=== PATIENT | female | born 1955 | race Caucasian/White ===

== ENCOUNTER 2018-11-03 09:46 | Outpatient (CLI) | payer BC, SELFPAY ==
[2018-11-03 12:25] LABS: ALT 58 U/L (12-78); AST 25 U/L (15-37); Albumin 3.9 g/dL (3.4-5.0); Alkaline Phosphatase 107 U/L (46-116); Anion Gap 11.9 mmol/L (3-11); BUN 12 mg/dL (7-18); Bilirubin, Total 0.4 mg/dL (0.2-1.0); CO2 28.1 mmol/L (21.0-32.0); CREATININE 0.61 mg/dL (0.55-1.02); Calcium 8.8 mg/dL (8.5-10.1); Chloride 99 mmol/L (98-107); Cholesterol 200 mg/dL (50-200); Glucose 137 mg/dL (70-100); HDL Cholesterol 39 mg/dL (40-60); LDL CHOLESTEROL 93 mg/dL (<100); Potassium 3.8 mmol/L (3.5-5.1); Sodium 139 mmol/L (136-145); Total Protein 7.1 g/dL (6.4-8.2); Triglyceride 419 mg/dL (30-150)
[2018-11-04 09:04] LABS: COMMENT (LAB VIEW ONLY) 114.73 mg/dL; Microalb ug/mg Crea 58.1 ug/mg Cr
== END 2018-11-03 10:06 ==
PROVIDERS: PCP Family Medicine; Visit Provider Family Medicine
DX: E11.9 Type 2 diabetes mellitus without complications (principal); Z00.00 Encounter for general adult medical examination without abnormal findings
CPT/HCPCS: 36415; 80053; 80061; 83721; 82043; 82570; 83036

== ENCOUNTER 2018-12-21 01:08 | Outpatient (CLI) | payer BC, SELFPAY ==
--- NOTE | 2018-12-21 13:14 | DI.MAMMO_ITS ---
SYMPTOMS/DIAGNOSIS: SCREENING, Z12.31 BILATERAL SCREENING MAMMOGRAM: Mammograms were interpreted according to the usual protocol including computer analysis with CAD system, tomosynthesis and C view imaging. The breasts are composed of heterogeneously dense fibroglandular tissue, breast density category C. No suspicious masses or suspicious microcalcifications are seen. There has been no significant change. IMPRESSION: Category 1, negative mammogram. Yearly screening mammography is recommended. [facility] ASSESSMENT OF FINDINGS: Negative. Category 1. Patient will receive a letter notifying them of these results. Bi-RADS category C. The breasts are heterogeneously dense, which may obscure small masses.
== END 2018-12-21 01:28 ==
PROVIDERS: PCP Family Medicine; Visit Provider Family Medicine
DX: Z12.31 Encounter for screening mammogram for malignant neoplasm of breast (principal)
CPT/HCPCS: 77063; 77067

== ENCOUNTER 2019-12-23 00:44 | Outpatient (CLI) | payer BC, SELFPAY ==
--- NOTE | 2019-12-23 15:22 | DI.MAMMO_ITS ---
EXAM: MG MAMMO SCREENING CLINICAL HISTORY: screening, Z12.39 TECHNIQUE: Bilateral full field digital CC and MLO mammographic images were obtained with 3D tomosyn thesis and utilizing computer aided detection (CAD). COMPARISON: Available for comparison. FINDINGS: Masses/Architectural Distortion: None seen. Microcalcifications: No suspicious pleomorphic-type are seen. Skin Thickening/Nipple Retraction: None. IMPRESSION: 1. No significant interval change with no specific features of malignancy noted. 2. Unless there is more urgent need, screening mammography is recommended, as per [place] [employer] guidelines. BI-RADS Category 1 - Negative Breast Density - Category C - Heterogeneously dense The mammogram demonstrates the patient's breast tissue is dense. Dense breast tissue is very common a nd is not abnormal but dense breast tissue can make it harder to find cancer on a mammogram. Also, de nse breast tissue may increase their breast cancer risk. This information about the result of the [facility] mogram report was provided to the patient to raise their awareness. Use this report when you speak wi th the patient about their risks for breast cancer, which includes their family history. At that time , you may recommend for more screening tests (Ultrasound or MRI) as they might be useful based on the ir risk. A negative radiographic report should not delay biopsy if a dominant or clinically suspicious mass is present. Up to ten percent of cancers are not identified on mammography. A negative report may reinforce clinical impression. Adenosis and dense breasts may obscure an underlying neoplasm. False positive reports average 6 to 10%. Patient will receive a letter notifying them of these results.
== END 2019-12-23 01:04 ==
PROVIDERS: PCP Family Medicine; Visit Provider Nurse Practitioner
DX: Z12.31 Encounter for screening mammogram for malignant neoplasm of breast (principal)
CPT/HCPCS: 77063; 77067

== ENCOUNTER 2020-10-19 03:05 | Outpatient (CLI) | payer BC, SELFPAY ==
[2020-10-20 18:09] LABS: COVID-19 RT-PCR UVMMC Result Negative (Negative)
== END 2020-10-19 03:06 | disposition home or self-care (01) ==
LOC: LBO 03:05
PROVIDERS: PCP Family Medicine; Visit Provider Family Medicine
DX: Z20.822 Contact with and (suspected) exposure to COVID-19 (principal)
CPT/HCPCS: U0003

== ENCOUNTER 2021-05-21 02:58 | Outpatient (CLI) | payer MEDICARE, OTHER, SELFPAY ==
[2021-05-21 07:28] LABS: HCT 43.7 % (36.0-46.0); HGB 14.5 g/dL (11.2-15.7); MCHC 33.2 % (32.0-36.0); MCV 90.3 fL (80-95); MPV 10.1 fL (8.0-11.0); Platelet Count 209 10^3/uL (130-400); RBC 4.84 10^6/uL (3.93-5.22); RDW 12.1 % (11.7-14.6); RDW-SD 39.8 fL; WBC 6.35 10^3/uL (4.4-10.8)
[2021-05-21 07:45] LABS: Hemoglobin A1C 8.1 % (<5.7)
[2021-05-21 09:23] LABS: ALT 56 U/L (14-59); AST 25 U/L (15-37); Alkaline Phosphatase 100 U/L (46-116); Anion Gap 12.6 mmol/L (3-11); BUN 18 mg/dL (7-18); Bilirubin, Total 0.5 mg/dL (0.2-1.0); CO2 28.4 mmol/L (21.0-32.0); CREATININE 0.6 mg/dL (0.55-1.02); Calcium 9.5 mg/dL (8.5-10.1); Calculated LDL 79 mg/dL (<100); Chloride 101 mmol/L (98-107); Cholesterol 193 mg/dL (<200); Glucose 180 mg/dL (74-106); HDL Cholesterol 45 mg/dL (40-60); Potassium 3.9 mmol/L (3.5-5.1); Sodium 142 mmol/L (136-145); Total Protein 7.2 g/dL (6.4-8.2); Triglyceride 345 mg/dL (<150)
[2021-05-21 17:24] LABS: COMMENT (LAB VIEW ONLY) 86.96 mg/dL; Microalb ug/mg Crea 57.7 ug/mg Cr
== END 2021-05-21 02:59 | disposition home or self-care (01) ==
LOC: LBO 02:58
PROVIDERS: PCP Family Medicine; Visit Provider Family Medicine
DX: I10 Essential (primary) hypertension (principal); E11.9 Type 2 diabetes mellitus without complications; K62.5 Hemorrhage of anus and rectum
CPT/HCPCS: 36415; 80053; 80061; 85027; 82043; 82570; 83036

== ENCOUNTER → 2021-06-01 14:32 | Outpatient (BNVA) | payer MEDICARE, OTHER, SELFPAY | PROVIDERS: PCP Family Medicine; Referring Provider Family Medicine; Visit Provider Surgery | DX: K64.8 Other hemorrhoids (principal) | CPT/HCPCS: 99203 ==

== ENCOUNTER 2021-06-08 00:08 | Outpatient (CLI) | payer MEDICARE, OTHER, SELFPAY ==
--- NOTE | 2021-06-08 15:31 | DI.MAMMO_ITS ---
Exam(s) MAMMO SCREENING EXAM: MAMMO SCREENING CLINICAL HISTORY: screening.Z12.39 TECHNIQUE: Bilateral full field digital CC and MLO mammographic images were obtained with 3D tomosyn thesis and utilizing computer aided detection (CAD). COMPARISON: Available for comparison. FINDINGS: Masses/Architectural Distortion: None seen. Microcalcifications: No suspicious pleomorphic-type are seen. Skin Thickening/Nipple Retraction: None. IMPRESSION: 1. No significant interval change with no specific features of malignancy noted. 2. Unless there is more urgent need, screening mammography is recommended, as per [place] [employer] guidelines. BI-RADS Category 1 - Negative Breast Density - Category C - Heterogeneously dense Breast density category C or D implies that the patient has dense breast tissue. Dense breast tissue is very common and is not abnormal but dense breast tissue can make it harder to find cancer on a ma mmogram. Also, dense breast tissue may increase their breast cancer risk. This information about the result of the mammogram report was provided to the patient to raise their awareness. Use this report when you speak with the patient about their risks for breast cancer, which includes their family hist ory. At that time, you may recommend for more screening tests (Ultrasound or MRI) as they might be us eful based on their risk. A negative radiographic report should not delay biopsy if a dominant or clinically suspicious mass is present. Up to ten percent of cancers are not identified on mammography. A negative report may reinforce clinical impression. Adenosis and dense breasts may obscure an underlying neoplasm. False positive reports average 6 to 10%. Patient will receive a letter notifying them of these results.
== END 2021-06-08 00:28 ==
PROVIDERS: PCP Family Medicine; Visit Provider Family Medicine
DX: Z12.31 Encounter for screening mammogram for malignant neoplasm of breast (principal); R92.8 Other abnormal and inconclusive findings on diagnostic imaging of breast
CPT/HCPCS: 77063; 77067

== ENCOUNTER → 2021-11-23 10:31 | Outpatient (BNVA) | payer MEDICARE, SELFPAY | PROVIDERS: PCP Family Medicine; Referring Provider Family Medicine; Visit Provider Surgery | DX: K64.9 Unspecified hemorrhoids (principal) | CPT/HCPCS: 99212 ==

== ENCOUNTER → 2021-12-07 09:53 | Outpatient (BNVA) | payer MEDICARE, SELFPAY | PROVIDERS: PCP Family Medicine; Referring Provider Family Medicine; Visit Provider Surgery | DX: K64.9 Unspecified hemorrhoids (principal); K62.1 Rectal polyp | CPT/HCPCS: 46221; 99213 ==

== ENCOUNTER 2021-12-07 10:34 | Outpatient (REF) | payer MEDICARE, SELFPAY ==
--- NOTE | 2021-12-07 10:30 | BOWEL_PTH ---
PATIENT: Laisha Knight LOC: [facility] U#:[id number] AGE/SX: 66/F ROOM: RE12/07/[address]: Lauren Avilez MD : [id number] BED: DIS: 12/07/2021 SPEC #: [id number] RECD: 12/07/21 12:35 STATUS: SNAJEEV REQ #: [id number] DENISSE: 12/07/21 10:[address]: Lauren Avilez DEPT: Surgical Specimen RECD BY: Tamiko Beth ENTERED: 12/07/21 12:35 SP TYPE: Bowel OTHR DR: Larry Lawton Tissues: 1 - BIOPSY BOWEL Procedures: GROSS AND MICRO LEVEL 4 Comments: [id number]
== END 2021-12-07 10:35 | disposition home or self-care (01) ==
LOC: LBN 10:34
PROVIDERS: PCP Family Medicine; Visit Provider Surgery
DX: K62.1 Rectal polyp (principal)
CPT/HCPCS: 88305

== ENCOUNTER → 2022-02-28 16:11 | Outpatient (CLI) | payer MEDICARE, SELFPAY ==
--- NOTE | 2022-02-28 14:30 | DI.RAD_ITS ---
Exam(s) XR ANKLE LT COMPLETE EXAM: XR ANKLE LT COMPLETE CLINICAL HISTORY: PAIN IN LT ANKLE JOINTS OF LT FOOT--M25.572 TECHNIQUE: 2D digital imaging was performed of the left ankle. Three images were obtained. AP, lat eral and oblique views were obtained. COMPARISON: No exams were available for comparison FINDINGS: BONES: No acute fracture is present. No bony destructive lesion is seen. There is a small plantar sukhwinder caneal spur. There is a small enthesophyte at the Achilles insertion site. There is a sideplate and screws transfixing the old healed left fibular fracture. There is a small subchondral cyst in the t ibial plafond. JOINTS:The ankle mortise is normally aligned. SOFT TISSUE: Soft tissue swelling about the ankle is noted. IMPRESSION: No acute abnormality. DATA REPOSITORY: RADIATION DOSE DELIVERED:
== END ==
PROVIDERS: PCP Nurse Practitioner Family; Visit Provider Physician Assistant
DX: M25.572 Pain in left ankle and joints of left foot (principal)
CPT/HCPCS: 73610

== ENCOUNTER 2022-07-29 01:05 | Outpatient (CLI) | payer MEDICARE, SELFPAY ==
[2022-07-29 12:21] LABS: HCT 42.9 % (36.0-46.0); HGB 14.2 g/dL (11.2-15.7); MCHC 33.1 % (32.0-36.0); MCV 91 fL (80-95); MPV 10.6 fL (8.0-11.0); Platelet Count 224 10^3/uL (130-400); RBC 4.74 10^6/uL (3.93-5.22); RDW 12.5 % (11.7-14.6); RDW-SD 41.3 fL; WBC 6.32 10^3/uL (4.4-10.8)
[2022-07-29 12:38] LABS: ALT 37 U/L (14-59); AST 20 U/L (15-37); Alkaline Phosphatase 105 U/L (46-116); Anion Gap 6.8 mmol/L (3-11); BUN 15 mg/dL (7-18); Bilirubin, Total 0.3 mg/dL (0.2-1.0); CO2 31.2 mmol/L (21.0-32.0); CREATININE 0.6 mg/dL (0.55-1.02); Calcium 9.8 mg/dL (8.5-10.1); Calculated LDL 81 mg/dL (<100); Chloride 101 mmol/L (98-107); Cholesterol 188 mg/dL (<200); Estimated GFR 98.93 (mL/min/1.73m2); Glucose 187 mg/dL (74-106); HDL Cholesterol 51 mg/dL (40-60); Sodium 139 mmol/L (136-145); TSH (W/Ref FT4) 1.47 uIU/mL (0.36-3.74); Total Protein 7.4 g/dL (6.4-8.2); Triglyceride 284 mg/dL (<150)
== END 2022-07-29 01:06 | disposition home or self-care (01) ==
LOC: LOS 01:05
PROVIDERS: PCP Nurse Practitioner Family; Visit Provider Nurse Practitioner Family
DX: E11.40 Type 2 diabetes mellitus with diabetic neuropathy, unspecified (principal); K62.5 Hemorrhage of anus and rectum; K64.8 Other hemorrhoids; I10 Essential (primary) hypertension; E78.5 Hyperlipidemia, unspecified
CPT/HCPCS: 36415; 80053; 80061; 85027; 84443

== ENCOUNTER 2022-09-02 00:57 | Outpatient (CLI) | payer MEDICARE, SELFPAY ==
--- NOTE | 2022-09-02 07:45 | DI.DEXA_ITS ---
Exam(s) XR DEXA BONE DENSITY W/WO TOMAS EXAM: XR DEXA BONE DENSITY W/WO TOMAS CLINICAL HISTORY: screening for osteoporosis in postmenopausal woman,Z78.0 TECHNIQUE: Routine DEXA evaluation of the lumbar spine, hip, or forearm. COMPARISON: No exams were available for comparison FINDINGS: Performed on a Hologic unit. Lateral image: No compression fracture evident. Lumbar Spine total T-score: -0.2 Hip total T-score:0.8 Independent reading at the level of the femoral neck yields T-score of -0.8 Forearm total T-score: -1.3 IMPRESSION: Bone mineral density measures in the normal range for lumbar spine and hip. Measures in osteopenia r gerosn for the forearm bones. Fracture risk low-moderate. Note: Any spine fracture indicates 5x risk for subsequent spine fracture and 2x risk for subsequent h ip fracture. World Health Organization criteria for BMD interpretation classify patients: Normal...... T- Score at or above -1.0 Osteopenic... T- Score between -1.0 and -2.5 Osteoporosis... T-Score at or below -2.5
--- NOTE | 2022-09-02 07:45 | DI.MAMMO_ITS ---
Exam(s) MAMMO SCREENING EXAM: MAMMO SCREENING CLINICAL HISTORY: screening,z12.39. TECHNIQUE: Bilateral full field digital CC and MLO mammographic images were obtained with 3D tomosyn thesis and utilizing computer aided detection (CAD). COMPARISON: Prior mammograms were reviewed. FINDINGS: There has been no significant change in the appearance and distribution of the fibroglandular tissue. There are no new spiculated masses nor malignant appearing microcalcification groups. There is no significant architectural distortion nor skin thickening-retraction. IMPRESSION: No radiographic evidence of malignancy. BI-RADS Category 1 - Negative Breast Density - Category C - Heterogeneously dense Breast density Category C or D implies that the patient has dense breast tissue. Dense breast tissue can make it harder to find cancer on a mammogram. Dense breast tissue is also associated with an incr eased risk of breast cancer. This information about the result of the mammogram report was provided to the patient to raise their awareness. Use this report when you speak with the patient about their risks for breast cancer, which includes their family history. At that time, you may recommend additional screening tests (Ultrasoun d or MRI) as these tests may add significant information. A negative radiographic report should not delay biopsy if a dominant or clinically suspicious mass is present. Up to ten percent of cancers are not identified on mammography. A negative report may reinforce clinical impression. Adenosis and dense breasts may obscure an underlying neoplasm. False positive reports average 6 to 10%. Patient will receive a letter notifying them of these results.
== END 2022-09-02 01:17 ==
LOC: DI 00:58
PROVIDERS: PCP Nurse Practitioner Family; Visit Provider Nurse Practitioner Family
DX: Z12.31 Encounter for screening mammogram for malignant neoplasm of breast (principal); Z78.0 Asymptomatic menopausal state; M85.88 Other specified disorders of bone density and structure, other site
CPT/HCPCS: 77063; 77067; 77080

== ENCOUNTER → 2022-09-27 14:18 | Outpatient (BNVA) | payer MEDICARE, SELFPAY | PROVIDERS: PCP Nurse Practitioner Family; Referring Provider Nurse Practitioner Family; Visit Provider Surgery | DX: K64.8 Other hemorrhoids (principal); I10 Essential (primary) hypertension; E11.9 Type 2 diabetes mellitus without complications | CPT/HCPCS: 99212; 99214 ==

== ENCOUNTER 2022-10-05 08:00 | Day surgery (SDC) | payer MEDICARE, SELFPAY ==
--- NOTE | 2022-10-05 06:37 | ROE_ITS ---
Date of service: 10/05/22 Time of Service: 10:25 Operative Note Operative Note DATE OF PROCEDURE: 10/05/22 PRE-OP DIAGNOSIS: Anal polyp POST-OP DIAGNOSIS: same PROCEDURE: Exam under anesthesia and polyp removal SURGEON: Lauren Avilez ANESTHESIA TYPE: Local By Surgeon, MAC and Spinal Refer to Anesthesia Record PATHOLOGY: other (anal polyp) COMPLICATIONS: None Patient was transported to: same day Patient's condition: stable Implants: None Indications: Laisha is a pleasant 67-year-old female with a prolapse type polyp in the rectum.? I did remove 1 in December of last year.? I am not sure whether this is a different polyp or if this regrowth of the polyp I tried to remove in the office last time.? I think this time I recommend doing exam under anesthesia in the operating room with complete excision and closure of the mucosa.? Risks benefits and complications were reviewed with her.? Complications include but are not limited to bleeding, infection, injury to the sphincter muscle with resulting incontinence and regrowth of this polyp.? I will again send the specimen to pathology.? Her questions were entertained and answered to her satisfaction.? She seemed to understand the risks and complications and wished to proceed. Procedure Description: After informed consent was obtained the patient was taken to the Operating room and placed in a prone position. She was placed under MAC sedation. Her buttocks were using tape on either side. Next a time out was done and the patients name, , allergies to medications, antibiotic given, procedure to be done were reviewed. Fire risk was assessed. Next the buttocks and triny-anal area were prepped with iodine and draped in a standard fashion. Next exparel mixed 50/50 with bupivocaine was injected circumferentially around the rectum. A rectal retractor was then placed into the rectum. The anal polyp was identified. It was ulcerated and very friable. It was gently grasped with an mario clamp. The base was ligated with a hand held ligasure. The edges were approximated with 3-0 Vicryl running suture. The excised polyp was placed in formalin and sent to pathology. There was one external hemorrhoid which was not bleeding and therefore was left alone. No other internal hemorrhoids were identified. The retractor was removed. a roled up 4x4 covered with surgicel was placed into the rectum. The skin was cleaned and dried. An ABD was placed and secured with mesh panties. The patient was then placed on a gurney in a supine position and taken back to [facility]. The patient tolerated the procedure well and there were no complications.
--- NOTE | 2022-10-05 06:38 | W.PM.DSUDISC ---
Date of service: 10/05/22 Time of Service: 10:12 Discharge Plan Disposition Patient Disposition: Home Condition: Stable Discharge Details Reason For Visit: internal hemorrhoids and anal polyp Attending Provider: Lauren Avilez Primary Care Provider: [place] Home Meds and New Rx's Prescriptions: New lidocaine [Anecream] 4 % cream 1 applic topical QID PRNQty: 30 0RF Rx Instructions: Wait to start until tomorrow Continued lisinopril 20 mg tablet 20 mg PO DAILY Qty: 90 3RF metformin 500 mg tablet extended release 24 hr 500 mg PO BID Qty: 180 3RF psyllium husk [Daily Fiber] 0.4 gram capsule 0.8 g PO DAILY amitriptyline 50 mg tablet 25 - 50 mg PO HS Qty: 90 3RF minocycline 50 mg capsule 50 mg PO BID Qty: 180 3RF metronidazole 0.75 % cream 1 applic TP DAILY Qty: 45 2RF (DME) blood-glucose meter [OneTouch Ultra2 Meter] [facility] [place] See Rx Instructions .Route Qty: 1 3RF Rx Instructions: Check blood sugar once a day (DME) OneTouch Ultra Test Strip See Rx Instructions .ROUTE .MEDSUPPLY Qty: 100 3RF Rx Instructions: Check blood sugar once a day (DME) lancets [OneTouch UltraSoft Lancets] [facility] [place] [facility] [place] See Rx Instructions .ROUTE .MEDSUPPLY Qty: 100 3RF Rx Instructions: Check blood sugar once a day omeprazole 20 mg capsule,delayed release(DR/EC) 20 mg PO DAILY Qty: 90 0RF cyclobenzaprine 5 mg tablet 5 mg PO TID PRN (Reason: muscle spasm) Qty: 60 0RF Rx Instructions: Take 1 tablet by mouth three times a day as needed for back pain calcium carbonate 500 MG tablet 1 tab PO DAILY multivitamin 1 EACH capsule 1 cap PO DAILY Fish Oil 1 EACH capsule 1 cap PO DAILY sumatriptan succinate 50 mg tablet See Rx Instructions PO .COMPLEX Qty: 20 4RF Dose Instruction: take 1 tab at onset of headache; if no relief may repeat 1 tab in 2hr; max = 4 tabs/day (24hr) PO Rx Instructions: take 1 tab at onset of headache; if no relief may repeat 1 tab in 2hr; max = 4 tabs/day (24hr) PO amlodipine 5 mg tablet 5 mg PO DAILY Qty: 90 3RF spironolactone 25 mg tablet 25 mg PO DAILY Qty: 90 3RF pravastatin 20 mg tablet 20 mg PO DAILY Qty: 90 3RF Held hydrocortisone 2.5 % cream with perineal applicator 1 applic OR TID Qty: 30 2RF Hold Instructions: Resume on 10/19/22. Allow the incision to heal for 2 weeks before using the hydrocodon again Rx Instructions: use for 2 weeks and stop Discharge Instructions Additional Instructions: Activity at Home after surgery: 1. As tolerated Diet, Nutrition, & wound healin. Avoid alcohol until after you are recovered from your surgery 2. Make sure to eat plenty of lean protein (meat, fish, eggs, cottage cheese, beans) 3. Eat a variety of fruits and vegetables. Eat plenty of high fiber foods to avoid constipation. 4. Drink plenty of liquids to stay hydrated and avoid constipation Pain Medications: 1. Tylenol 650mg every 6 hours as needed and Ibuprofen 600 mg every 6 hours as needed. You may alternate between the 2 medications every 3 hours 2. If a narcotic has been prescribed take as directed only for breakthrough pain For Constipation: 1. Take Milk of Magnesia or MiraLax as needed for constipation Other: 1. You may shower daily. 2. Sit in a bath with warm water 3 times a day 3. DO NOT use hydrocortizone cream for at least 2 weeks 4. Lidocaine oitment can be used up to 4 x a day for discomfort Please call our office if you develop: 1. Fevers >101.5 2. Nausea or Vomiting 3. Worsening pain 4. Redness and thick discharge from the wounds 5. Bleeding more then 2 tbs from the rectum If after hours please call the Hospital at and ask to speak to the on-call surgeon Stand Alone Forms: Anesthesia Discharge Inst., [place] (DSU) Referrals: Lauren Avilez MD [ [facility] STAFF PHYSICIAN] - 11/01/22 11:30 am Activity:: as above Shower/Bathe:: 24 hours Diet:: As Tolerated Discharge Orders Discharge Orders: Discharge Order (Routine); Ordered 10/05/22 Ordered By: Lauren Avilez DS: Diagnosis Discharge Diagnosis (1) Internal hemorrhoids: Status: Chronic
[2022-10-05 08:00] VITALS: BP 155/103; PULSE 100; RESP 18; TEMP 36.6; O2SAT 98
[2022-10-05] MEDS: Lactated Ringers 1,000 ML 80 ML IV (08:35)
--- NOTE | 2022-10-05 08:56 | W.PM.PROGNOT ---
Date of Service Date of service: 10/05/22 Time of Service: 08:56 Assessment and Plan Assessment and plan (1) Rectal polyp: Status: Acute Assessment and plan: Risks benefits and complications were again reviewed with Patricia. Complications include but are not limited to injury to this finger muscle which could result in incontinence, bleeding, pain, injury to the mucosa resulting in fistula and requiring further surgery. I will again send any tissue to pathology. When I removed the rectal polyp last time it was benign. I will just make sure that it has not changed. We discussed postoperative care with sitz bath and lidocaine ointment to help with pain. She did not have any other questions and wished to proceed with exam under anesthesia and internal hemorrhoid banding and excision of polyp. (2) Internal hemorrhoids: Status: Chronic Subjective Subjective Interval history since last seen: Laisha was seen in same-day surgery today prior to her surgery. She is doing well. She is still having some intermittent bleeding. No other changes to her health since I saw her in the office. We again reviewed the procedure of exam under anesthesia with excision of internal hemorrhoids and polyp. She may have some sutures in there. We discussed postoperative care with sitz bath's and some lidocaine ointment. We again reviewed the risks and benefits. Complications include but are not limited to sphincter injury which could lead to incontinence, injury to the anal mucosa resulting in fistula, postop bleeding. Exam Const General: cooperative, comfortable and no acute distress Orientation: alert and oriented x3 HENMT Head: normocephalic and atraumatic Resp Effort & Inspection: normal respiratory effort Auscultation: clear to auscultation bilaterally Cardio Rate: regular rate Rhythm: regular rhythm Objective Last Vital Signs Temp 97.9 F 10/05/22 08:00 Pulse 100 H 10/05/22 08:00 Resp 18 10/05/22 08:00 BP 155/103 H 10/05/22 08:00 Pulse Ox 98 10/05/22 08:00 Time Spent with Patient Time Spent with Patient: <25 minutes Time was spent: preparing to see the patient(eg.review tests) and counseling the patient
--- NOTE | 2022-10-05 09:14 | W.ANESPRE ---
General Info Date of Service Date Performed: 10/05/22 Height: 5 ft 3 in Weight: 107.2 kg Body Mass Index (BMI): 41.8 Surgical Procedure: Operation Date: 10/05/22 09:25 Proposed Procedure Side Surgeon p Exam Under Anesthesia w/ Excision of Polyp and Hemorrhoidectomy Lauren Avilez MD Meds Allergies and Home Medications Allergies Allergy/AdvReac Type Severity Reaction Status Date / Time No Known Drug Allergies Allergy Unverified 10/05/22 08:19 Home Medication Medication Instructions Recorded calcium carbonate 500 mg calcium 1 tab PO DAILY 09/25/12 (1,250 mg) tablet multivitamin 1 cap PO DAILY 09/25/12 omega-3 fatty acids-fish oil 340 1 cap PO DAILY 09/25/12 mg-1,000 mg capsule (Fish Oil) sumatriptan succinate 50 mg tablet See Rx Instructions PO .COMPLEX 01/31/22 #20 tabs amlodipine 5 mg tablet 5 mg PO DAILY #90 tabs 06/13/22 spironolactone 25 mg tablet 25 mg PO DAILY #90 tabs 06/13/22 amitriptyline 50 mg tablet 25 - 50 mg PO HS insomnia #90 tabs 07/22/22 blood sugar diagnostic (OneTouch #100 ea 07/22/22 Ultra Test strips) blood-glucose meter (OneTouch #1 ea 07/22/22 Ultra2 Meter) lancets (OneTouch UltraSoft #100 ea 07/22/22 Lancets) metronidazole 0.75 % topical cream 1 applic topical DAILY #45 grams 07/22/22 minocycline 50 mg capsule 50 mg PO BID #180 tab-caps 07/22/22 omeprazole 20 mg capsule,delayed 20 mg PO DAILY #90 caps 07/22/22 release cyclobenzaprine 5 mg tablet 5 mg PO TID PRN muscle spasm #60 07/29/22 tabs hydrocortisone 2.5 % topical cream 1 applic FL TID hemorrhoids #30 08/08/22 with perineal applicator grams lisinopril 20 mg tablet 20 mg PO DAILY #90 tab-caps 08/08/22 metformin 500 mg tablet,extended 500 mg PO BID #180 tabs 08/08/22 release 24 hr pravastatin 20 mg tablet 20 mg PO DAILY #90 tabs 08/10/22 psyllium husk 0.4 gram capsule 0.8 g PO DAILY 09/27/22 (Daily Fiber) Current Visit Medications: Current Medications Generic Name Dose Route Start Last Admin Trade Name Freq PRN Reason Stop Dose Admin Ringer's Solution 1,000 mls @ 80 mls/hr 10/05/22 06:00 10/05/22 08:35 IV 11/03/22 23:59 80 mls/hr INFUSION JUAN Administration Metronidazole 500 mg in 100 mls @ 100 mls/hr 10/05/22 06:00 Flagyl IVPB 10/05/22 18:00 PREOP JUAN Ondansetron HCl 4 mg/ Sodium 52 mls @ 200 mls/hr 10/05/22 06:41 Chloride IVPB Q6H PRN PRN IV Miscellaneous Supplies 1 each 10/05/22 06:00 Iv Access IV 11/03/22 23:59 DIRECTED JUAN Oxycodone HCl 5 mg 10/05/22 06:41 Oxycodone 5 Mg Tab PO Q3H PRN PRN Pain Sodium Chloride 0 ml 10/05/22 06:00 Normal Saline Flush 10 Ml Syr IV 11/03/22 23:59 PRN PRN Sodium Chloride 0 ml 10/05/22 06:00 Normal Saline 10 Ml Vial IJ 11/03/22 23:59 DIRECTED PRN Sterile Water 0 ml 10/05/22 06:00 Water,Injection,Sterile 10 Ml Vial IJ 11/03/22 23:59 DIRECTED PRN PFSH Active Problems Active Problems: Problem Status Onset Code Rectal polyp K62.1 Type 2 diabetes mellitus with diabetic neuropathy E11.40 Hypertension Hyperlipidemia E78.5 Internal hemorrhoids K64.8 Rectal bleeding K62.5 GERD (gastroesophageal reflux disease) K21.9 Dysphagia R13.10 BERTIN (stress urinary incontinence, female) N39.3 Osteopenia M85.80 Insomnia Varicose veins of right lower extremity I83.91 Medical History Medical History COVID-19 (~05/02/22) Migraine Pituitary microadenoma (~1996) Rosacea Surgical History Surgical History History of carpal tunnel release History of hypophysectomy Status post ORIF of fracture of ankle Left Tobacco Smoking/Tobacco Use Status: Former Tobacco Use Passive smoking exposure: Yes Second hand exposure: Yes Alcohol Alcohol Intake: current Alcohol intake frequency: holidays/special occasions only Alcohol type: hard liquor Substance Use Substance use: Never Substance use type: does not use Vital Signs and Lab Results Vital Signs Most Recent Vital Signs in EMR: Most Recent Vital Signs Temp Pulse Resp BP Pulse Ox 36.6 C 100 H 18 155/103 H 98 10/05/22 08:00 10/05/22 08:00 10/05/22 08:00 10/05/22 08:00 10/05/22 08:00 Point of Care Results Point of Care Results: Finger Stick Blood Glucose 177 10/05/22 08:31 Lab Results Blood Type / Crossmatch: No Data to Display Complete Blood Count: No Data to Display Complete Metabolic Panel: No Data to Display Liver Function Panel: No Data to Display Coagulation Panel: No Data to Display Cardiac Panel: No Data to Display Arterial Blood Gas: No Data to Display Venous Blood Gas: No Data to Display Pancreas Panel: No Data to Display Thyroid Panel: No Data to Display Infectious Disease: No Data to Display Blood Cultures: No Data to Display Toxicology Panel: No Data to Display Anesthesia Assessment and Plan Anesthesia History Personal History: No History of Anesthesia Complications Family History: No Family History of Anesthesia Complications and Family History Unknown Exercise Tolerance Exercise Tolerance: Metabolic Equivalents>4 Pertinent Negatives Pertinent Negatives: No Symptoms of GERD and No Major Cardiovascular Symptoms or Complaints Cardiac & Pulmonary Exam Cardiac Exam: Normal S1/S2 Heart Sounds Pulmonary Exam: Clear Bilateral Breath Sounds Implantable Cardiac Device Does patient have a Pacemaker or an ICD?: No Airway Exam Known Difficult Airway: No Mallampati Class: 3 Mouth Opening: Normal (> 3cm) Thyromental Distance: Greater than 3 cm Neck Range of Motion: Full ROM Neck Circumference: Normal Teeth Condition: Normal Dentition ASA Classification ASA Score: ASA 3 Emergency Case?: No NPO Status NPO Status: NPO Clears >2 hours, Solids >8 hours Anesthesia Plan Resuscitation Status: Full Code Anesthesia Technique: General Anesthesia Airway Planned: Natural Airway Monitors Used: Standard Monitors Preoperative Comments:: Discussed with surgeon and pt. All agree should be able to do with light general no airway. Pt was ok in office with initial exam.
[2022-10-05 09:17] VITALS: BMI 41.8
--- NOTE | 2022-10-05 09:55 | BOWEL_PTH ---
PATIENT: Laisha Knight LOC: [facility] U#:[id number] AGE/SX: 67/F ROOM: RE10/05/[address]: Lauren Avilez MD : 1955 BED: DIS: 10/05/2022 SPEC #: [id number] RECD: 10/05/22 12:55 STATUS: SANJEEV RENemo #: [id number] DENISSE: 10/05/22 09:[address]: Lauren Avilez DEPT: Surgical Specimen RECD BY: Tamiko Beth ENTERED: 10/05/22 12:55 SP TYPE: Bowel OTHR DR: JOSÉ Cazaers Tissues: 1 - BIOPSY BOWEL Procedures: GROSS AND MICRO LEVEL 4 Comments: [id number]
[2022-10-05] MEDS: Bupivacaine LIPOSOME/PF 133 MG/10 ML VIAL IJ (09:58)
[2022-10-05] MEDS: Bupivacaine 0.25% Pres-Free 10 ML VIAL (09:58)
[2022-10-05] MEDS: Cellulose,Oxidized 4X8 1 PACKET MC (09:58)
[2022-10-05 10:04] VITALS: BP 130/91; PULSE 96; RESP 18; TEMP 36.4; O2SAT 99
--- NOTE | 2022-10-05 10:16 | W.ANESPOSTOP ---
Postoperative Evaluation Date, Time and Location Date Performed: 10/05/22 Time Performed: 10:16 Patient Location: Day [facility] Unit Vital Signs Most Recent Imported Vital Signs: Most Recent Vital Signs Temp Pulse Resp BP Pulse Ox 36.6 C 100 H 18 155/103 H 98 10/05/22 08:00 10/05/22 08:00 10/05/22 08:00 10/05/22 08:00 10/05/22 08:00 Most Recent Manually Entered Vital Signs: Adult Blood Pressure: 130/91 Heart Rate: 87 Respirations: 12 Oxygen Saturation (%): 100 Temperature (C): 36.4 C Pain Score (0-10 Scale): 0 Pain Score Most Recent Pain Score: Most Recent Pain Score Pain Level 0 10/05/22 08:00 Assessment Mental Status: Awake (Alert & Oriented to Patient Baseline) Airway and Respiratory Function: Patent airway with normal (patient baseline) respiratory exam Cardiovascular Function: Hemodynamically Stable Hydration Status: Adequately Hydrated Nausea & Vomiting: No Nausea or Vomiting Pain: Pt. Denies Any Pain Peripheral Nerve Block: Patient did not receive a nerve block
[2022-10-05 10:18] VITALS: BP 130/91; PULSE 87; RESP 12; TEMPC 36.4; O2SAT 100
[2022-10-05 10:28] VITALS: BP 148/96; PULSE 87; RESP 18; TEMP 36.5; O2SAT 100
[2022-10-05 11:08] VITALS: BP 140/91; PULSE 91; RESP 18; TEMP 36.6; O2SAT 98
--- NOTE | 2022-10-05 11:16 | W.PM.PROGNOT ---
Date of Service Date of service: 10/05/22 Time of Service: 11:16 Assessment and Plan Assessment and plan (1) Rectal polyp: Status: Acute Subjective Subjective Interval history since last seen: Patricia is an hour post exam under anesthesia with removal of an anal polyp. I went over the procedure with her as well as the findings. I explained what I did as well as the fact that she has a 4 x 4 with Surgicel in the anal rectal area to help with bleeding. I have asked her to sit and warm water and about 2 to 3 hours to get the packing wet and then she can gently remove it. If she has to go to the bathroom prior to that then it is okay to remove it earlier. Reviewed pain medications. I reviewed with her that I sent in a prescription for lidocaine ointment to use. I would like her to not use the hydrocortisone for at least 2 weeks to allow this to heal. I will see her in the office in a month. Exam Const General: comfortable and no acute distress Resp Effort & Inspection: normal respiratory effort GI Palpation: soft and nontender Objective Last Vital Signs Temp 97.9 F 10/05/22 11:08 Pulse 91 H 10/05/22 11:08 Resp 18 10/05/22 11:08 BP 140/91 H 10/05/22 11:08 Pulse Ox 98 10/05/22 11:08 Time Spent with Patient Time Spent with Patient: <25 minutes Time was spent: counseling the patient
[2022-10-05 11:56] VITALS: BP 145/88; PULSE 80; RESP 18; TEMP 36.6; O2SAT 96
== END 2022-10-05 12:06 | disposition home or self-care (01) ==
PROVIDERS: PCP Nurse Practitioner Family; Visit Provider Surgery
PROC: (CPT 46922; principal; 2022-10-05 09:15)
DX: K62.0 Anal polyp (principal); K64.8 Other hemorrhoids
CPT/HCPCS: 46922; 88305

== ENCOUNTER 2023-02-10 21:06 | Outpatient (REF) | payer MEDICARE, SELFPAY ==
[2023-02-10 21:54] LABS: COMMENT (LAB VIEW ONLY) 55.86 mg/dL; Microalb ug/mg Crea 44.9 ug/mg Cr
== END 2023-02-10 21:07 | disposition home or self-care (01) ==
LOC: LBN 21:06
PROVIDERS: PCP Nurse Practitioner Family; Visit Provider Nurse Practitioner Family
DX: E11.9 Type 2 diabetes mellitus without complications (principal)
CPT/HCPCS: 82043; 82570

== ENCOUNTER 2023-08-01 02:23 | Outpatient (CLI) | payer MEDICARE, SELFPAY ==
[2023-08-01 10:00] LABS: Anion Gap 11.1 mmol/L (3-11); BUN 15 mg/dL (7-18); CO2 28.9 mmol/L (21.0-32.0); CREATININE 0.6 mg/dL (0.55-1.02); Calcium 9.2 mg/dL (8.5-10.1); Calculated LDL 106 mg/dL (<100); Chloride 102 mmol/L (98-107); Cholesterol 221 mg/dL (<200); Estimated GFR 98.32 (mL/min/1.73m2); Glucose 165 mg/dL (74-106); HDL Cholesterol 55 mg/dL (40-60); Potassium 3.6 mmol/L (3.5-5.1); Sodium 142 mmol/L (136-145); Triglyceride 303 mg/dL (<150)
[2023-08-01 18:48] LABS: Hepatitis C Ab w Rflx HCV PCR Negative (Negative)
== END 2023-08-01 02:24 | disposition home or self-care (01) ==
PROVIDERS: PCP Nurse Practitioner Family; Visit Provider Nurse Practitioner Family
DX: Z00.00 Encounter for general adult medical examination without abnormal findings (principal); E78.5 Hyperlipidemia, unspecified
CPT/HCPCS: 36415; 80048; 80061; 86803

== ENCOUNTER → 2023-09-08 06:05 | Outpatient (CLI) | payer MEDICARE, SELFPAY ==
--- NOTE | 2023-09-08 07:30 | DI.MAMMO_ITS ---
Exam(s) MAMMO SCREENING EXAM: MAMMO SCREENING CLINICAL HISTORY: screening,Z12.39 TECHNIQUE: Bilateral full field digital CC and MLO mammographic images were obtained with 3D tomosyn thesis and utilizing computer aided detection (CAD). COMPARISON: Available for comparison. FINDINGS: Masses/Architectural Distortion: There is an ovoid area of increased density in the medial right yulisa st on the craniocaudad view. This is more prominent compared to the prior examination. It lies 5.4 cm from the nipple. Microcalcifications: No suspicious pleomorphic-type are seen. Stable calcifications are seen in both breasts. Skin Thickening/Nipple Retraction: None. IMPRESSION: 1. Increased prominence of an area of increased density in the medial right breast on the craniocauda d view. 2. This area should be further evaluated with a spot compression view. Ultrasound should also be obt ained at that time. BI-RADS Category 0 - Assessment Incomplete: Need additional imaging evaluation Breast Density - Category C - Heterogeneously dense Breast density category C or D implies that the patient has dense breast tissue. Dense breast tissue is very common and is not abnormal but dense breast tissue can make it harder to find cancer on a ma mmogram. Also, dense breast tissue may increase their breast cancer risk. This information about the result of the mammogram report was provided to the patient to raise their awareness. Use this report when you speak with the patient about their risks for breast cancer, which includes their family hist ory. At that time, you may recommend for more screening tests (Ultrasound or MRI) as they might be us eful based on their risk. A negative radiographic report should not delay biopsy if a dominant or clinically suspicious mass is present. Up to ten percent of cancers are not identified on mammography. A negative report may reinforce clinical impression. Adenosis and dense breasts may obscure an underlying neoplasm. False positive reports average 6 to 10%. Patient will receive a letter notifying them of these results.
== END ==
PROVIDERS: PCP Nurse Practitioner Family; Visit Provider Nurse Practitioner Family
DX: Z12.31 Encounter for screening mammogram for malignant neoplasm of breast (principal)
CPT/HCPCS: 77063; 77067

== ENCOUNTER → 2023-09-12 12:59 | Outpatient (CLI) | payer MEDICARE, SELFPAY ==
--- NOTE | 2023-09-12 | DI.US_ITS ---
Exam(s) MG MAMMO SCREEN CALL BACK UNI US BREAST RT COMPLETE EXAM: MG MAMMO SCREEN CALL BACK UNI-RIGHT AND COMPLETE RIGHT BREAST ULTRASOUND CLINICAL HISTORY: F/U MAMMO, INCREASED DENSITY MEDIAL RT BREAST R92.8. TECHNIQUE: Unilateral spot mammographic images obtained with 3D tomosynthesisand utilizing computer aided detection (CAD). . Complete RIGHT breast Ultrasound was also performed, including all 4 quadrants, the retroareolar dillan on, and the ipsilateral axilla. COMPARISON: Prior mammograms were reviewed. This additional imaging was performed due to findings described on the recent screening mammogram of 09/08/2023.. FINDINGS: DIAGNOSTIC MAMMOGRAM: Additional mammographic views performed todaydo not dissipate the new nodule. We proceeded with ultr asound COMPLETE RIGHT BREAST ULTRASOUND: Ultrasound performed today reveals 2 findings, 1 of which corresponds to the finding on the mammogram .. At the 12 o'clock position there is simple 5 millimeter benign microcyst. At the 2 o'clock position there is a finding which has the appearance of the probable conglomeration microcysts measuring 8 x 7 mm and most probably corresponds to the finding on the mammogram. There are no other focal ultrasound findings in all 4 quadrants. Scanning of the ipsilateral axilla reveals no significant adenopathy. IMPRESSION: 1. Benign-appearing findings at 2 o'clock position of the right breast most probably corresponding t o the finding on the mammogram. Appropriate follow-up as discussed by myself with the patient today is repeat right breast imaging in 6 months to include repeat mammogram and ultrasound. The patient was informed of these findings and recommendations by myself prior to leaving the departm ent today. BI-RADS Category 3 - 6 month - Probably Benign Finding: Recommend follow-up mammography in 6 months Breast Density - Category C - Heterogeneously dense Breast density Category C or D implies that the patient has dense breast tissue. Dense breast tissue can make it harder to find cancer on a mammogram. Dense breast tissue is also associated with an incr eased risk of breast cancer. This information about the result of the mammogram report was provided to the patient to raise their awareness. Use this report when you speak with the patient about their risks for breast cancer, which includes their family history. At that time, you may recommend additional screening tests (Ultrasoun d or MRI) as these tests may add significant information. A negative radiographic report should not delay biopsy if a dominant or clinically suspicious mass is present. Up to ten percent of cancers are not identified on mammography. A negative report may reinforce clinical impression. Adenosis and dense breasts may obscure an underlying neoplasm. False positive reports average 6 to 10%. Patient will receive a letter notifying them of these results.
== END ==
PROVIDERS: PCP Nurse Practitioner Family; Visit Provider Nurse Practitioner Family
DX: Z12.31 Encounter for screening mammogram for malignant neoplasm of breast (principal); R92.8 Other abnormal and inconclusive findings on diagnostic imaging of breast
CPT/HCPCS: 76642; 77063; 77067

== ENCOUNTER 2024-01-24 16:01 | Outpatient (CLI) | payer MEDICARE, SELFPAY ==
--- NOTE | 2024-01-24 14:41 | DI.RAD_ITS ---
Exam(s) XR WRIST LT LIMITED EXAM: XR WRIST LT LIMITED CLINICAL HISTORY: F/U FRACTURE. TECHNIQUE: 2D digital imaging was performed. COMPARISON: [facility] LEFT 2 VIEWS from 01/12/2024 FINDINGS: Two views-AP and lateral: Compared to outside forearm images performed at [facility] enter 01/12/2024 Limited 2 view is of the left wrist reveals no evidence of fracture or dislocation. Negative ulnar v ariance is again noted. Degenerative changes at the 1st carpometacarpal joint are again noted. No o bvious scaphoid fracture evident on these images. Scapholunate distance normal. No evidence of avas cular necrosis. Bone density is age-appropriate. No osseous lesions. No radiopaque foreign bodies. IMPRESSION: No obvious fractures evident on this two view study. Negative ulnar variance again noted DATA REPOSITORY: RADIATION DOSE DELIVERED:
== END 2024-01-24 16:02 | disposition home or self-care (01) ==
LOC: DIORS 16:02
PROVIDERS: PCP Nurse Practitioner Family; Referring Provider Nurse Practitioner Family; Visit Provider Student in an Organized Health Care Education/Training Program
DX: S52.502D Unspecified fracture of the lower end of left radius, subsequent encounter for closed fracture with routine healing; W19.XXXD Unspecified fall, subsequent encounter
CPT/HCPCS: 99213; 73100

== ENCOUNTER 2024-02-21 15:12 | Outpatient (CLI) | payer MEDICARE, SELFPAY ==
--- NOTE | 2024-02-21 14:15 | DI.RAD_ITS ---
Exam(s) XR WRIST LT LIMITED EXAM: XR WRIST LT LIMITED CLINICAL HISTORY: F/U FRACTURE. TECHNIQUE: 2D digital imaging was performed of the left wrist. Two images were obtained. PA and la teral views were obtained. COMPARISON: CR FOREARM LEFT 2 VIEWS from 01/12/2024 CR XR WRIST LT LIMITED from 01/24/2024 FINDINGS: BONES: There is now an oblique area of sclerosis seen in the distal left radius suspicious for healin g nondisplaced fracture. No bony destructive lesion is seen. JOINTS: The carpal bones are normally aligned. There are mild degenerative changes seen at the 1st CM C joint. SOFT TISSUE: Normal. IMPRESSION: Findings suggestive of a healing nondisplaced distal radial fracture. DATA REPOSITORY: RADIATION DOSE DELIVERED:
== END 2024-02-21 15:13 | disposition home or self-care (01) ==
LOC: DIORS 15:12
PROVIDERS: PCP Nurse Practitioner Family; Referring Provider Nurse Practitioner Family; Visit Provider Student in an Organized Health Care Education/Training Program
DX: S52.502D Unspecified fracture of the lower end of left radius, subsequent encounter for closed fracture with routine healing; X58.XXXD Exposure to other specified factors, subsequent encounter
CPT/HCPCS: 99213; 73100

== ENCOUNTER 2024-03-29 00:34 | Outpatient (CLI) | payer MEDICARE, SELFPAY ==
--- NOTE | 2024-03-29 14:46 | DI.MAMMO_ITS ---
Exam(s) MG MAMMO DIAGNOSTIC UNI US BREAST RT LIMITED EXAM: MG MAMMO DIAGNOSTIC UNI and U/S breast RT limit CLINICAL HISTORY: 6 month f/U RT MICROCYSTS,R92.8,Z09. TECHNIQUE: Craniocaudal and mediolateral oblique Full Field Digital Mammography views of the right b reast with Computer Aided Diagnosis followed by Tomosynthesis and right breast ultrasound. COMPARISON: Comparison is made with prior examinations. FINDINGS: Mammography/Tomosynthesis: Masses/Architectural Distortion: Scattered fibroglandular tissue is seen. No suspicious masses are s een. Microcalcifictions: No suspicious pleomorphic-type are seen. Stable benign type calcifications are se en throughout the right breast. Skin Thickening/Nipple Retraction: None. Limited right breast US: Echotexture: Normal appearance of the glandular tissue. Shadowing: No suspicious foci. Cyst: There is a stable cyst at the 12 o'clock position of the right breast 5 cm from the nipple leslie uring 0.5 x 0.4 x 0.4 cm. The cluster of cysts at the 2 o'clock position of the right breast 3 cm fr om the nipple is also unchanged. Solid lesions: None seen. Ductal dilation: None. IMPRESSION: 1. No evidence of malignancy is noted. 2. Unless there is more urgent need, follow-up screening mammography is recommended, as per [employer] guidelines. 3. The findings were discussed with the patient on the date of the examination. BI-RADS Category 2 - Benign Findings Breast Density - Category C - Heterogeneously dense Breast density Category C or D implies that the patient has dense breast tissue. Dense breast tissue can make it harder to find cancer on a mammogram. Dense breast tissue is also associated with an incr eased risk of breast cancer. This information about the result of the mammogram report was provided to the patient to raise their awareness. Use this report when you speak with the patient about their risks for breast cancer, which includes their family history. At that time, you may recommend additional screening tests (Ultrasoun d or MRI) as these tests may add significant information. A negative radiographic report should not delay biopsy if a dominant or clinically suspicious mass is present. Up to ten percent of cancers are not identified on mammography. A negative report may reinforce clinical impression. Adenosis and dense breasts may obscure an underlying neoplasm. False positive reports average 6 to 10%. Patient will receive a letter notifying them of these results.
== END 2024-03-29 00:54 ==
LOC: DI 00:35
PROVIDERS: PCP Nurse Practitioner Family; Visit Provider Nurse Practitioner Family
DX: Z09 Encounter for follow-up examination after completed treatment for conditions other than malignant neoplasm (principal); R92.8 Other abnormal and inconclusive findings on diagnostic imaging of breast
CPT/HCPCS: 76642; 77061; 77065; G0279

== ENCOUNTER 2024-06-07 14:12 | Outpatient (REF) | payer MEDICARE, SELFPAY ==
[2024-06-07 17:50] LABS: Microalb ug/mg Crea 40.6 ug/mg Cr
== END 2024-06-07 14:13 | disposition home or self-care (01) ==
LOC: NCHCN 14:12
PROVIDERS: PCP Nurse Practitioner Family; Visit Provider Nurse Practitioner Family
DX: E11.9 Type 2 diabetes mellitus without complications (principal)
CPT/HCPCS: 82043; 82570

== ENCOUNTER 2024-07-16 03:52 | Outpatient (CLI) | payer MEDICARE, SELFPAY ==
[2024-07-16 09:22] LABS: Anion Gap 7.1 mmol/L (3-11); BUN 12 mg/dL (7-18); CO2 30.9 mmol/L (21.0-32.0); CREATININE 0.6 mg/dL (0.55-1.02); Calcium 9.2 mg/dL (8.5-10.1); Chloride 103 mmol/L (98-107); Estimated GFR 97.71 (mL/min/1.73m2); Glucose 180 mg/dL (74-106); Potassium 3.6 mmol/L (3.5-5.1); Sodium 141 mmol/L (136-145); Vitamin D 25 Total 21.5 ng/mL (30-100)
[2024-07-16 19:30] LABS: HBs Antibody, Quant 4.8 mIU/mL (See Note); Hep B Surface Ab Negative (See Note); Hepatitis B Core Antibody Negative (Negative); Hepatitis B Surface Antigen Negative (Negative)
[2024-07-16 19:36] LABS: HIV-1/2 Ag & Ab Screen Negative (Negative)
== END 2024-07-16 03:53 | disposition home or self-care (01) ==
LOC: LBO 03:53
PROVIDERS: PCP Nurse Practitioner Family; Visit Provider Nurse Practitioner Family
DX: E11.40 Type 2 diabetes mellitus with diabetic neuropathy, unspecified (principal); M85.80 Other specified disorders of bone density and structure, unspecified site; Z11.59 Encounter for screening for other viral diseases; Z11.4 Encounter for screening for human immunodeficiency virus [HIV]
CPT/HCPCS: 36415; 80048; 82306; 86704; 86706; 87340; 87389

== ENCOUNTER 2024-09-09 03:15 | Outpatient (CLI) | payer MEDICARE, SELFPAY ==
--- NOTE | 2024-09-09 07:30 | DI.MAMMO_ITS ---
Exam(s) MAMMO SCREENING EXAM: MAMMO SCREENING CLINICAL HISTORY: screening,Z12.39 TECHNIQUE: Bilateral full field digital CC and MLO mammographic images were obtained with 3D tomosyn thesis and utilizing computer aided detection (CAD). COMPARISON: Available for comparison. FINDINGS: Masses/Architectural Distortion: There is a stable nodule in the upper inner quadrant of the left eduard ast. No nodules are seen. No areas of architectural distortion is seen. Microcalcifications: No suspicious pleomorphic-type are seen. Stable calcifications are seen in the b reasts bilaterally. Skin Thickening/Nipple Retraction: None. IMPRESSION: 1. No significant interval change with no specific features of malignancy noted. 2. Unless there is more urgent need, screening mammography is recommended, as per [employer] guidelines. BI-RADS Category 2 - Benign Findings Breast Density - Category C - Heterogeneously dense Breast density category C or D implies that the patient has dense breast tissue. Dense breast tissue is very common and is not abnormal but dense breast tissue can make it harder to find cancer on a ma mmogram. Also, dense breast tissue may increase their breast cancer risk. This information about the result of the mammogram report was provided to the patient to raise their awareness. Use this report when you speak with the patient about their risks for breast cancer, which includes their family hist ory. At that time, you may recommend for more screening tests (Ultrasound or MRI) as they might be us eful based on their risk. A negative radiographic report should not delay biopsy if a dominant or clinically suspicious mass is present. Up to ten percent of cancers are not identified on mammography. A negative report may reinforce clinical impression. Adenosis and dense breasts may obscure an underlying neoplasm. False positive reports average 6 to 10%. Patient will receive a letter notifying them of these results.
== END 2024-09-09 03:35 ==
LOC: DI 03:15
PROVIDERS: PCP Nurse Practitioner Family; Visit Provider Nurse Practitioner Family
DX: Z12.31 Encounter for screening mammogram for malignant neoplasm of breast (principal); R92.333 Mammographic heterogeneous density, bilateral breasts; D24.2 Benign neoplasm of left breast
CPT/HCPCS: 77063; 77067